=== PATIENT | male | born 1995 | race Caucasian/White ===

== ENCOUNTER 2019-03-24 09:39 | Outpatient (CLI) | payer OTHER, SELFPAY ==
--- NOTE | ~2019-03-24 | XR_ITS ---
EXAMINATION: XR foot RT min 3V DATE: 03/24/2019 09:52 INDICATION: Fifth metatarsal fracture TECHNIQUE: Dorsoplantar, lateral, and 2 oblique views of the left foot were obtained. COMPARISON: 03/03/2019 FINDINGS: Again seen is a transverse fracture at the distal neck of the fifth metatarsal. Calcified c allus has slightly increased. Bone alignment is normal. The soft tissues are unremarkable. No additio nal osseous abnormality is identified. IMPRESSION: 1. Fifth metatarsal fracture with routine healing. Reviewed, dictated and finalized at location A. 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
== END 2019-03-24 09:40 | disposition home or self-care (01) ==
LOC: ANHIMG 09:41
PROVIDERS: Visit Provider Podiatrist Foot & Ankle Surgery
DX: S92.351D Displaced fracture of fifth metatarsal bone, right foot, subsequent encounter for fracture with routine healing (principal); X58.XXXD Exposure to other specified factors, subsequent encounter
CPT/HCPCS: 73630

== ENCOUNTER 2019-04-13 08:17 | Outpatient (CLI) | payer MEDICAID, SELFPAY ==
--- NOTE | ~2019-04-13 | XR_ITS ---
XR foot RT min 3V DATE: 04/13/2019 08:37 INDICATION: Fifth metatarsal fracture TECHNIQUE: 4 views COMPARISON: None FINDINGS: There is sclerosis and linear periosteal reaction at the virtually nondisplaced fracture of the neck of the fifth metatarsal bone consistent with healing fracture. No other fracture or dislocation is evident. IMPRESSION: Healing virtually nondisplaced fifth metatarsal neck fracture Reviewed, dictated and finalized at location B. 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
== END 2019-04-13 08:18 | disposition home or self-care (01) ==
LOC: ANHIMG 08:19
PROVIDERS: Visit Provider Podiatrist Foot & Ankle Surgery
DX: S92.355A Nondisplaced fracture of fifth metatarsal bone, left foot, initial encounter for closed fracture (principal); X58.XXXA Exposure to other specified factors, initial encounter
CPT/HCPCS: 73630

== ENCOUNTER 2019-07-23 08:19 | Emergency (ER) | payer OTHER, SELFPAY ==
[2019-07-23 08:51] VITALS: BP 134/86; PULSE 68; RESP 16; TEMP 36.8; O2SAT 100
--- NOTE | 2019-07-23 08:52 | ED.URI ---
HPI - URI/Sore Throat General Chief Complaint: Upper Respiratory Infection Stated Complaint: blister on back/throat Time Seen by Provider: 07/23/19 08:52 Source: patient Mode of arrival: ambulatory History of Present Illness HPI Narrative: Scar Metz is a 23 yo male who comes to express care for complaints of a sore throat and sunburn on his back from being out in the sun yesterday. It sore throat started today and is able to swallow but hurts to do so. No fever Related Data Allergies Allergy/AdvReac Type Severity Reaction Status Date / Time No Known Allergies Allergy Verified 07/23/19 08:42 Review of Systems Review of Systems: Narrative: CONSTITUTIONAL: Denies fever, chills, sweats. EYES: Denies visual changes, redness, discharge. ENT: Denies rhinorrhea, congestion, has sore throat, no otalgia. CARDIOVASCULAR: Denies chest pain, palpitations, edema. RESPIRATORY: Denies dyspnea, wheezing, cough GASTROINTESTINAL: Denies abdominal pain, nausea, vomiting, diarrhea. GENITOURINARY: Denies dysuria, hematuria, abnormal discharge SKIN: Denies rash or itching. Mild sunburn of full back NEUROLOGIC: Denies numbness, or focal weakness. PSYCHIATRIC: Denies anxiety or depression. PMFSH Past Medical History Medical History Asthma IBS (irritable bowel syndrome) Murmur Surgical History Surgical History No significant past surgical history Social History Social History (Updated 07/23/19 @ 09:08 by Santa Peterson CNP) Smoking status: Never smoker Alcohol intake: current Gender identity (if verbalized by the patient): Male Comments At time of signature, I agree with nursing past medical, surgical, social and family history. There is no relevant family history pertinent to the presenting complaint. Exam Narrative: Exam Narrative: GENERAL: This is a well-nourished, well-developed patient, in mild distress. HEAD: normocephalic, atraumatic. EYES: Sclera clear/white. Vision is grossly intact. EARS: External ears normal, auditory canals clear and without drainage, TMs normal without perforation. Hearing grossly intact. NOSE: External nose normal without nasal discharge, nares without redness, no rhinorrhea. THROAT: Mucous membranes moist, posterior pharynx erythema with right-sided swelling and ulcerated area to the right tonsil NECK: Neck supple, non-tender CARDIOVASCULAR: Regular rate and rhythm mild murmurs, gallops, or rubs. RESPIRATORY: Clear to auscultation. Breath sounds equal bilaterally. No wheezes, rales, or rhonchi. GASTROINTESTINAL: Abdomen soft, non-tender, SKIN: warm, intact with no suspicious lesions or rash, good texture and turgor. MIld sunburn of back NEURO: awake, alert, and oriented to person, place and time. There were no obvious focal neurologic abnormalities. Steady gait EXTREMITIES: Normal range of motion. BACK: Nontender without deformity Course Course Emergency Course: strep positive- started on penicillin lidocaine lotion for back Vital Signs Vital signs: Vital Signs Temperature 98.3 F 07/23/19 08:51 Pulse Rate 68 07/23/19 08:51 Respiratory Rate 16 07/23/19 08:51 Blood Pressure 134/86 07/23/19 08:51 Pulse Oximetry 100 07/23/19 08:51 Temperature 98.3 F 07/23/19 08:51 Pulse Rate 68 07/23/19 08:51 Respiratory Rate 16 07/23/19 08:51 Blood Pressure 134/86 07/23/19 08:51 Pulse Oximetry 100 07/23/19 08:51 MDM - URI/Sore Throat Differential Diagnosis Differential diagnosis: Likely upper respiratory infection, pharyngitis and other (sunburn) Lab Data Labs: Strep Screen Positive Group A Strep *(Reference Range: Negative)* Discharge Plan Discharge Clinical Impression: 1st degree sunburn Pharyngitis Qualifiers: Pharyngitis/tonsillitis etiology: streptococcus Qualified Code(s): J02.0 - Streptococcal pha
== END 2019-07-23 09:12 | disposition home or self-care (01) ==
PROVIDERS: Emergency Provider Nurse Practitioner
DX: J02.0 Streptococcal pharyngitis (principal); L55.0 Sunburn of first degree; J45.909 Unspecified asthma, uncomplicated; K58.9 Irritable bowel syndrome, unspecified
CPT/HCPCS: 87880; 99213; G0463

== ENCOUNTER 2019-10-31 09:02 | Emergency (ER) | payer OTHER, SELFPAY ==
--- NOTE | 2019-10-31 09:12 | ED.URI ---
HPI - URI/Sore Throat General Chief Complaint: Upper Respiratory Infection Stated Complaint: Skin/Sore throat/cough Time Seen by Provider: 10/31/19 09:12 Source: patient and RN notes reviewed History of Present Illness HPI Narrative: Patient is a 24-year-old male who presents the urgent care with complaints of sore throat, slight cough and itchy diffuse rash. 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 Patient states that he has been using lidocaine spray but denies any use of hydrocortisone or an antihistamine. Patient states that he has had a sore throat for approximately 4 days and is now developed into a nonproductive cough. Patient denies of any known fever, nausea, vomiting, shortness of breath or headache. Patient has been using DayQuil and NyQuil for the sore throat and took 1 dose of ibuprofen. Denies of any known exposure to strep or COVID. No other acute complaints. No acute distress noted. Patient read the plan of care. Related Data Allergies Allergy/AdvReac Type Severity Reaction Status Date / Time No Known Allergies Allergy Verified 10/31/19 09:07 Review of Systems Review of Systems: Narrative: CONSTITUTIONAL: Denies fever, chills, or sweats. EYES: Denies visual changes, redness, or discharge. ENT: Reports of sore throat CARDIOVASCULAR: Denies chest pain, palpitations, or edema. RESPIRATORY: Reports of mild nonproductive cough without dyspnea GASTROINTESTINAL: Denies abdominal pain, nausea, vomiting, or diarrhea. GENITOURINARY: Denies dysuria or hematuria. SKIN: Reports of pruritic red rash MUSCULOSKELETAL: Denies back pain, joint pain, or myalgia. NEUROLOGIC: Denies headache, numbness, or weakness. All other systems reviewed are negative, except as documented in HPI. PMFSH Social History Social History (Updated 07/23/19 @ 09:08 by Santa Peterson CNP) Smoking status: Never smoker Alcohol intake: current Gender identity (if verbalized by the patient): Male Comments At the time of my signature, I reviewed and agree with the nursing past medical, surgical, social, and family history. There is no relevant family history pertinent to the patient complaint. Exam Narrative: Exam Narrative: GENERAL: This is a well-nourished, well-developed patient, in no apparent distress. HEAD: normocephalic, atraumatic. EYES: PERRL. Sclera clear/white. Vision is grossly intact. EARS: External ears normal, auditory canals clear and without drainage, TMs normal without perforation. Hearing grossly intact. NOSE: External nose normal with no obvious nasal discharge, nares without redness, no rhinorrhea. THROAT: Mucous membranes moist, posterior pharynx clear. Mild postnasal drainage NECK: Neck supple, non-tender without lymphadenopathy CARDIOVASCULAR: Regular rate and rhythm without murmurs, gallops, or rubs. RESPIRATORY: Clear to auscultation. Breath sounds equal bilaterally. No wheezes, rales, or rhonchi. SKIN: Pustular clusters and linear tracts of pruritic erythemic dermatitis known to bilateral upper and lower extremities NEURO: awake, alert, and oriented to person, place and time. There were no obvious focal neurologic abnormalities. EXTREMITIES: No clubbing, cyanosis, or edema. Course Vital Signs Vital signs: Vital Signs Temperature 97.3 F L 10/31/19 09:14 Pulse Rate 67 10/31/19 09:14 Respiratory Rate 16 10/31/19 09:14 Blood Pressure 145/91 H 10/31/19 09:14 Pulse Oximetry 100 10/31/19 09:14 Temperature 97.3 F L 10/31/19 09:14 Pulse Rate 67 10/31/19 09:14 Respiratory Rate 16 10/31/19 09:14 Blood Pressure 145/91 H 10/31/19 09:14 Pulse Oximetry 100 10/31/19 09:14 Reviewed-patient is informed that they may have pre-hypertension or hypertension based on a blood pressure reading in the department. I recommend the patient call the primary care provider listed on their discharge instru
[2019-10-31 09:14] VITALS: BP 145/91; PULSE 67; RESP 16; TEMP 36.3; O2SAT 100
== END 2019-10-31 09:30 | disposition home or self-care (01) ==
PROVIDERS: Emergency Provider Nurse Practitioner Family; PCP Internal Medicine
DX: J02.0 Streptococcal pharyngitis (principal)
CPT/HCPCS: 87880; 99213; G0463

== ENCOUNTER 2020-01-16 08:33 | Emergency (ER) | payer OTHER, SELFPAY ==
--- NOTE | 2020-01-16 09:05 | ED.EXTPRO ---
HPI - Extremity Problem General Chief complaint: Extremity Problem,Nontraumatic Stated complaint: right foot pain Time Seen by Provider: 01/16/20 09:00 Source: patient and RN notes reviewed Mode of arrival: ambulatory Limitations: no limitations History of Present Illness HPI Narrative: 24-year-old male presents concern for pain to the plantar aspect of his right foot. He denies any injury, trauma. Reports he can feel a bump under the skin where the pain is located. He denies any open skin, redness, bruising. He denies any intervention MD Complaint: extremity pain Related Data Home Medications Medication Instructions Recorded Confirmed No Home Medications 01/16/20 01/16/20 Allergies Allergy/AdvReac Type Severity Reaction Status Date / Time No Known Allergies Allergy Verified 01/16/20 08:41 Review of Systems Review of Systems: Narrative: CONSTITUTIONAL: Denies malaise, chills, sweats, or fever. CARDIOVASCULAR: Denies chest pain, palpitations, or edema. RESPIRATORY: Denies cough or dyspnea. SKIN: Denies open skin. Reports a painful bump on the bottom of his right foot MUSCULOSKELETAL: Reports right foot pain, denies decreased sensation or range of motion NEUROLOGIC: Denies numbness, weakness All systems reviewed & are unremarkable except as noted in HPI and below PMFSH Past Medical History Medical History (Updated 01/16/20 @ 09:10 by Nica Lloyd NP) Asthma IBS (irritable bowel syndrome) Murmur Surgical History Surgical History No significant past surgical history Social History Social History (Updated 07/23/19 @ 09:08 by Santa Peterson CNP) Smoking status: Never smoker Alcohol intake: current Gender identity (if verbalized by the patient): Male Comments At time of signature, agree with nursing past medical, surgical, social and family history. There is no relevant family history pertinent to the presenting complaint Exam Narrative: Exam Narrative: GENERAL: Well-appearing, well-nourished, and in no acute distress. HEAD: Normocephalic, atraumatic. EYES: PERRLA, conjunctivae clear NECK: Supple. CHEST: Speaks in full sentences. No respiratory distress. HEART: Regular rate and rhythm. Normal and equal peripheral pulses. EXTREMITIES: Right foot, digits of right foot have normal strength and sensation, normal range of motion. No edema or ecchymosis. 5/5 strength with ankle and digit flexion and extension. Normal sensation with sensitivity to light touch and pain. No point tenderness. No open wounds, no skin tenting, no devitalized tissue or atrophy, no trophic changes, no obvious deformity, alignment normal, nearby joints and structures intact. Distal pulses palpable and equal bilaterally, skin warm, dry, pink. Capillary refill less than 3 seconds. SKIN: Warm, dry, no rash. Palpable plantar wart approximately 0.5 cm in diameter noted to the plantar aspect of the right foot beneath digits 3 and 4 NEURO: Alert and oriented x3. PSYCH: Normal mood and affect Course Course Emergency Course: Patient is aware of diagnosis, understands and agrees to treatment plan. Anticipatory guidance given. Patient agrees to follow-up as directed and is aware of reasons to seek care at the emergency department. Portions of this record may have been created with voice recognition software Vital Signs Vital signs: Reviewed. MDM - Extremity (Nontraumatic) MDM Narrative Medical decision making narrative: Exam findings show no acute concerns or changes; patient is non-toxic appearing and is in no distress. Patient is appropriate for outpatient treatment and follow-up. Critical Care Time Critical Care Time Critical Care Time: No Discharge Plan Discharge Clinical Impression: Plantar wart of right foot Patient Disposition: Home, Self-Care Condition: Stable Instructions: Plantar Wart (ED) Additional Instructions: 1) Please follow-up with you
== END 2020-01-16 09:12 | disposition home or self-care (01) ==
PROVIDERS: Emergency Provider Nurse Practitioner
DX: B07.0 Plantar wart (principal); J45.909 Unspecified asthma, uncomplicated; R01.1 Cardiac murmur, unspecified
CPT/HCPCS: 99211; G0463

== ENCOUNTER 2020-12-14 12:22 | Emergency (ER) | payer OTHER, SELFPAY ==
[2020-12-14 12:39] VITALS: BP 146/93; PULSE 73; RESP 16; TEMP 36.7; O2SAT 99
--- NOTE | 2020-12-16 08:24 | ED.GENADULT ---
HPI - General Adult General Chief complaint: Upper Respiratory Infection Stated complaint: cough/sore throat Source: patient Mode of arrival: ambulatory Limitations: no limitations History of Present Illness HPI narrative: Patient is a 25-year-old male who presents to the urgent care via POV for evaluation of URI symptoms that began yesterday. Additionally, he reports nasal congestion, sore throat, and cough. He reports his cough is productive. He states he has a small amount of green sputum with intermittent cough. No relief with DayQuil. Cough drops alleviate sore throat. Nothing worsens symptoms. Denies known exposure to sick contacts. Patient is vaccinated against Covid. Related Data Allergies Allergy/AdvReac Type Severity Reaction Status Date / Time No Known Allergies Allergy Verified 12/14/20 12:41 Review of Systems Review of Systems: Denies history of COPD, bronchitis, and pneumonia. Pertinent negatives: fever, sweats, chills, change in appetite, fatigue, skin color changes, headache, nasal discharge, dizziness, lymphadenopathy, drooling, difficulty swallowing, ear pain/drainage, chest pain, heart murmurs, heart palpitations, shortness of breath, wheezing, cyanosis, hemoptysis, hoarseness, orthopnea, pleuritic pain, nausea, vomiting, diarrhea, and myalgias. PMFSH Past Medical History Medical History Asthma IBS (irritable bowel syndrome) Murmur Surgical History Surgical History No significant past surgical history Social History Social History Smoking status: Never smoker Alcohol intake: current Gender identity (if verbalized by the patient): Male Comments I have reviewed and agree with the patient's past medical, surgical, social, and family hx as documented by the RN. There is no relevant family history pertinent to the presenting complaint. Exam Narrative: GENERAL: Well-appearing, well-nourished, and in no acute distress. HEAD: Normocephalic, atraumatic. No sinus tenderness or facial swelling appreciated. EYES: PERRLA and EOMI. No evidence of erythema, swelling, or drainage. ENT: Bilateral external ears and ear canals normal. Bilateral TMs are normal.No TM perforation. Nares clear or epistaxis. Small amount of clear nasal drainage noted to bilateral naris. Bilateral turbinates without erythema/ swelling. Mucous membranes moist and pink. Uvula is midline without erythema and swelling. No evidence of petechial rash, cobblestoning, lesions, ulcers, erythema, swelling, exudates, peritonsillar abscess, tenting, or drooling. Breath odor and voice normal. NECK: Supple. No Lymphadenopathy or nuchal rigidity appreciated. CHEST: Bilateral lung posadas are clear to auscultation. No respiratory distress. No evidence of pleuritic cp upon examination. Mild wet cough appreciated upon examination. HEART: Regular rate and rhythm. No murmur, gallop, or rub heard. EXTREMITIES: Normal range of motion. No edema. SKIN: Warm, dry, no rash. NEURO: No focal deficits. Alert and oriented x3. Course Vital Signs Vital signs: Vital Signs Temperature 98.1 F 12/14/20 12:39 Pulse Rate 73 12/14/20 12:39 Respiratory Rate 16 12/14/20 12:39 Blood Pressure 146/93 H 12/14/20 12:39 Pulse Oximetry 99 12/14/20 12:39 Temperature 98.1 F 12/14/20 12:39 Pulse Rate 73 12/14/20 12:39 Respiratory Rate 16 12/14/20 12:39 Blood Pressure 146/93 H 12/14/20 12:39 Pulse Oximetry 99 12/14/20 12:39 Due to an elevated blood pressure, I had a detailed discussion with the patient and/or guardian regarding the need for follow-up with their primary care provider within the next 3-4 days. Patient verbalized understanding and agreed. Medical Decision Making Differential Diagnosis Differential Diagnosis: Allergic rhinitis, ABRS,
== END 2020-12-14 13:57 | disposition home or self-care (01) ==
PROVIDERS: Emergency Provider Nurse Practitioner Family
DX: J06.9 Acute upper respiratory infection, unspecified (principal); M19.90 Unspecified osteoarthritis, unspecified site; R01.1 Cardiac murmur, unspecified
CPT/HCPCS: 87081; 87880; 99213; G0463

== ENCOUNTER 2021-03-09 18:18 | Emergency (ER) | payer OTHER, SELFPAY ==
[2021-03-09 18:28] VITALS: BP 165/74; PULSE 87; RESP 16; TEMP 36.6; O2SAT 100
--- NOTE | 2021-03-09 18:43 | ED.DENTAL ---
HPI - Dental/Oral General Chief complaint: Dental/Oral Stated complaint: Tooth Ache Time Seen by Provider: 03/09/21 18:38 Source: patient and RN notes reviewed Mode of arrival: ambulatory Limitations: no limitations History of Present Illness HPI Narrative: Patient presents today complaining of a 10-day history of right upper dental pain. States the tooth has been bothering him intermittently for the past 2 months with the pain has been constant over the past 10 days. Reports the tooth broke several months ago. Currently rates his pain 5/10, which increases with eating or cold air. He has been taking ibuprofen with mild short-term relief. He does not currently have a dentist. MD Complaint: tooth pain Related Data Allergies Allergy/AdvReac Type Severity Reaction Status Date / Time No Known Allergies Allergy Verified 12/14/20 12:41 Review of Systems Review of Systems: CONSTITUTIONAL: Denies body aches, fever, chills, or sweats. EYES: Denies visual changes, redness, or discharge. ENT: Denies rhinorrhea, congestion, sore throat, or otalgia.+ Tooth pain CARDIOVASCULAR: Denies chest pain, palpitations, or edema. RESPIRATORY: Denies cough or dyspnea. GASTROINTESTINAL: Denies abdominal pain, nausea, vomiting, or diarrhea. GENITOURINARY: Denies dysuria or hematuria. SKIN: Denies rash, itching, or wounds. MUSCULOSKELETAL: Denies back pain, joint pain, or myalgia. NEUROLOGIC: Denies headache, numbness, tingling, or weakness. PSYCH: Denies depression or anxiety. [facility] Past Medical History Medical History (Updated 03/09/21 @ 18:45 by Mary Randle, CHON, ) Asthma IBS (irritable bowel syndrome) Murmur Surgical History Surgical History No significant past surgical history Social History Social History Smoking status: Never smoker Alcohol intake: current Gender identity (if verbalized by the patient): Male Comments At time of signature, I have reviewed and agree with nursing past medical, surgical, social and family history unless otherwise noted. Please see nursing chart for further information. There is no relevant family history pertinent to the presenting complaint Exam Narrative: GENERAL: Well-appearing, well-nourished, and in no acute distress. HEAD: Normocephalic, atraumatic. EYES: EOMI. No redness or drainage. Conjunctivae normal. ENT: Mucous membranes pink and moist. Throat normal. Uvula midline. Anterior half of tooth #3 is missing. Mild swelling of the gumline with no obvious periapical abscess. Mild swelling of the upper cheek. NECK: Normal AROM. Supple. No lymphadenopathy. CHEST: No respiratory distress. EXTREMITIES: Normal range of motion. No edema. SKIN: Warm, dry, no rash. Capillary refill normal. Normal skin turgor. NEURO: No focal deficits. Alert and oriented x3. Gait steady. PSYCH: Normal affect. No signs of depression or anxiety. Course Course Level of Care: Express Care Visit Vital Signs Vital signs: Vital Signs Temperature 97.9 F 03/09/21 18:28 Pulse Rate 87 03/09/21 18:28 Respiratory Rate 16 03/09/21 18:28 Blood Pressure 165/74 H 03/09/21 18:28 Pulse Oximetry 100 03/09/21 18:28 Temperature 97.9 F 03/09/21 18:28 Pulse Rate 87 03/09/21 18:28 Respiratory Rate 16 03/09/21 18:28 Blood Pressure 165/74 H 03/09/21 18:28 Pulse Oximetry 100 03/09/21 18:28 Reviewed. Pt has been instructed to follow up with his PCP regarding his elevated blood pressure today. MDM - Dental/Oral Differential Diagnosis Differential diagnosis: Likely gingival abscess, dental caries, toothache, dental abscess and fracture of tooth Critical Care Time Critical Care Time Critical Care Time: No Discharge Plan Discharge Clinical Impression: Abscess, dental Patient Disposition: Home, Self-Care Condition: Stable Instructions: Antibio
== END 2021-03-09 18:52 | disposition home or self-care (01) ==
PROVIDERS: Emergency Provider Nurse Practitioner
DX: K04.7 Periapical abscess without sinus (principal); J45.909 Unspecified asthma, uncomplicated; R01.1 Cardiac murmur, unspecified
CPT/HCPCS: 99213; G0463

== ENCOUNTER 2021-11-22 20:57 | Emergency (ER) | payer OTHER, SELFPAY ==
--- NOTE | ~2021-11-22 | US_ITS ---
EXAMINATION: US scrotum doppler DATE: 11/22/2021 22:03 INDICATION: Right testicular pain. TECHNIQUE: Testicular sonogram utilizing grayscale and Doppler COMPARISON: None. FINDINGS: The right testis measures 5.1 x 2.6 x 2.8 cm. The left testis measures 4.9 x 2.9 x 2.5 cm. Symmetric normal grayscale appearance to both testes. There is normal vascular flow to both testes. The right e pididymis is normal with normal vascular flow. The left epididymis is normal with normal vascular jennifer w. There is no varicocele or hydrocele. IMPRESSION: 1. Normal scrotal ultrasound. Reviewed, dictated and finalized at location A.
[2021-11-22 20:58] VITALS: BP 149/83; PULSE 84; RESP 20; TEMP 36.6; O2SAT 100
[2021-11-22 21:23] LABS: Appearance Urine Clear (Clear); Bilirubin Urine Negative (Negative); Blood Urine Trace-intact (Negative); Color Urine Yellow (Yellow); Glucose Urine UA Negative (Negative); Ketones Urine Negative (Negative); Leukocyte Esterase Ur Negative LEU/UL (Negative); Nitrate Urine Negative (Negative); Protein Urine Negative (Negative); Specific Grav Ur >= 1.030 (1.001-1.035)
[2021-11-22 21:28] LABS: Mucus Urine Rare /lpf; Squamous Epithelial Cell Urine Rare /hpf (Few); WBC Urine 0-3 /hpf
[2021-11-22 21:29] LABS: Add Urine Microscopic? YES
--- NOTE | 2021-11-22 22:51 | ED.GENADULT ---
HPI - General Adult General Chief complaint: Urogenital-Male Stated complaint: TESTICULAR PAIN Time Seen by Provider: 11/22/21 21:04 History of Present Illness HPI narrative: 26-year-old male presented the emergency department for evaluation of right testicular pain. Patient states the pain has been intermittent over the last few days. Patient states the pain is worsened with movement. Patient denies any hematuria. Patient denies any injury. Patient denies any pain with urination. Patient has no prior history of kidney stones or testicular surgery. Denies any concern for STIs. Related Data Allergies Allergy/AdvReac Type Severity Reaction Status Date / Time No Known Allergies Allergy Verified 11/22/21 21:01 Review of Systems Review of Systems: CONSTITUTIONAL: Denies fever, chills, or sweats. EYES: Denies visual changes, redness, or discharge. ENT: Denies rhinorrhea, congestion, sore throat, or otalgia. CARDIOVASCULAR: Denies chest pain, palpitations, or edema. RESPIRATORY: Denies cough or dyspnea. GASTROINTESTINAL: Denies abdominal pain, nausea, vomiting, or diarrhea. GENITOURINARY: Intermittent left testicular pain, see HPI SKIN: Denies rash or itching. MUSCULOSKELETAL: Denies back pain, joint pain, or myalgia. NEUROLOGIC: Denies headache, numbness, or weakness. [facility] Past Medical History Medical History (Updated 11/23/21 @ 00:00 by Background Danegrito) Asthma IBS (irritable bowel syndrome) Murmur Surgical History Surgical History No significant past surgical history Social History Social History Smoking status: Never smoker Alcohol intake: current Gender identity (if verbalized by the patient): Male Exam Narrative: APPEARANCE: Well appearing, no pain, no distress, well-nourished. HEAD: normocephalic, atraumatic. EYES: PERRLA/EOMI, conjunctivae clear. NOSE: Normal no drainage NECK: Supple. No adenopathy, no masses. RESPIRATORY: Airway patent, respirations nonlabored. Clear to auscultation bilaterally, no rales, rhonchi, wheezing. CARDIOVASCULAR: Regular rate and rhythm without murmurs rubs or gallops. ABDOMINAL: Soft, nontender, nondistended, normal bowel sounds, no CVA tenderness to left or right Genitourinary: Normal left testicle, tenderness to right testicle. No high riding right testicle. No scrotal edema or erythema. No swelling to either testicle. Patient does have reproducible tenderness to right testicle. MUSCULOSKELETAL: Moves all extremities. Strength/ROM intact, No edema, No calf tenderness. NEURO: Alert. Cranial nerves II through XII intact. Grossly intact SKIN: Warm, dry. Normal Color Course Course Emergency Course: Patient was updated on the results of his ultrasound. All question concerns were addressed. Patient was encouraged to have close follow-up with urology. Vital Signs Vital signs: Vital Signs Temperature 97.9 F 11/22/21 20:58 Pulse Rate 84 11/22/21 20:58 Respiratory Rate 20 11/22/21 20:58 Blood Pressure 149/83 H 11/22/21 20:58 Pulse Oximetry 100 11/22/21 20:58 Oxygen Delivery Room Air 11/22/21 20:58 Temperature 98.3 F 11/22/21 23:09 Pulse Rate 82 11/22/21 23:09 Respiratory Rate 16 11/22/21 23:09 Blood Pressure 126/80 11/22/21 23:09 Pulse Oximetry 98 11/22/21 23:09 Oxygen Delivery Room Air 11/22/21 20:58 Medical Decision Making Vital Signs Vital Signs: Vital Signs Temperature 97.9 F 11/22/21 20:58 Pulse Rate 84 11/22/21 20:58 Respiratory Rate 20 11/22/21 20:58 Blood Pressure 149/83 H 11/22/21 20:58 Pulse Oximetry 100 11/22/21 20:58 Oxygen Delivery Room Air 11/22/21 20:58 Temperature 98.3 F 11/22/21 23:09 Pulse Rate 82 11/22/21 23:09 Respiratory Rate 16 11/22/21 23:09 Blood Pressure 126/80 11/22/21 23:09 Pulse Oximetry 98 11/22/21 23:09 Oxygen Deliver
[2021-11-22 23:09] VITALS: BP 126/80; PULSE 82; RESP 16; TEMP 36.8; O2SAT 98
== END 2021-11-22 23:10 | disposition home or self-care (01) ==
PROVIDERS: Emergency Provider Emergency Medicine
DX: N50.811 Right testicular pain (principal); J45.909 Unspecified asthma, uncomplicated; R01.1 Cardiac murmur, unspecified
CPT/HCPCS: 76870; 81001; 93976; 99284

== ENCOUNTER 2022-02-08 10:12 | Emergency (ER) | payer OTHER, SELFPAY ==
--- NOTE | ~2022-02-08 | XR_ITS ---
EXAMINATION: XR hand RT min 3V INDICATION: Right hand pain TECHNIQUE: Three views of the right hand are obtained. COMPARISON: None available FINDINGS: No fracture, dislocation, or subluxation. The bones, soft tissues, and joint spaces are nor mal. IMPRESSION: 1. No acute osseous abnormality. Reviewed, dictated and finalized at location A. AGING COORDINATOR
[2022-02-08 10:18] VITALS: BP 160/81; PULSE 68; RESP 14; TEMP 36.6; O2SAT 100
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
== END 2022-02-08 11:50 | disposition home or self-care (01) ==
LOC: ANHED 11:33
PROVIDERS: Emergency Provider Nurse Practitioner Family
DX: S60.011A Contusion of right thumb without damage to nail, initial encounter (principal); J45.909 Unspecified asthma, uncomplicated; K58.9 Irritable bowel syndrome, unspecified; W51.XXXA Accidental striking against or bumped into by another person, initial encounter
CPT/HCPCS: 73130; 99283

== ENCOUNTER 2022-02-12 07:54 | Emergency (ER) | payer OTHER, SELFPAY ==
[2022-02-12 08:03] VITALS: BP 142/78; PULSE 71; RESP 16; TEMP 36.7; O2SAT 99
[2022-02-12 08:41] VITALS: PULSE 65; O2SAT 99
--- NOTE | 2022-02-12 09:07 | PC.NURSE ---
BRAKE RELINER seeing pt. in triage bay.
--- NOTE | 2022-02-12 09:13 | ED.EXTPRO ---
HPI - Extremity Problem General Chief complaint: Extremity Problem,Nontraumatic Stated complaint: swollen, tender, and itchy left hand Time Seen by Provider: 02/12/22 09:04 History of Present Illness HPI Narrative: Patient is a 26-year-old male here for evaluation of redness and swelling to the base of his right thumb over the past day. Patient denies any injury. States that he noticed the area was itchy and after he scratched it became red and swollen. He is taking Benadryl with slight relief. States that yesterday he had redness up his arm but this has resolved today. He denies any fevers, chills, nausea, vomiting, difficulty moving the arm or hand. No new medications, soaps, detergents. Related Data Allergies Allergy/AdvReac Type Severity Reaction Status Date / Time No Known Allergies Allergy Verified 11/22/21 21:01 Review of Systems Review of Systems: Gen.: Denies fevers or chills Eyes: Denies eye pain or visual change ENT: Denies congestion Respiratory: Denies shortness of breath or cough CV: Denies chest pain or palpitations GI: Denies abdominal pain nausea, emesis or diarrhea : denies burning, urgency, frequency or hematuria Musculoskeletal: Reports right hand and arm pain. Neuro: Denies numbness, tingling, weakness or focal weakness Skin: Denies rash Except as documented, all other systems reviewed and negative [facility] Past Medical History Medical History Asthma IBS (irritable bowel syndrome) Murmur Surgical History Surgical History No significant past surgical history Social History Social History Smoking status: Never smoker Alcohol intake: current Gender identity (if verbalized by the patient): Male Exam Narrative: Gen: Alert, oriented, no acute disease Eyes: EOMI, no icterus Pulm: Respirations even and unlabored, symmetric thorax expansion, no audible stridor or visible cyanosis CV: Strong radial pulses. GI: No distension, no voluntary/involuntary guarding Neuro: AOx4, moves all extremities without apparent difficulty or weakness, follows commands MSK: Full range of motion in right hand. Sensation intact to entirety of extremity. No erythema appreciated. Mild swelling near the base of the thumb that is nontender to palpation. No deformity. Skin: No jaundice, no visible bruising, rashes, lesions or wounds on exposed skin Psych: Normal mood/affect, insight/judgement good, adequate fund of knowledge, recent/remote memory intact Course Vital Signs Vital signs: Vital Signs Temperature 98.1 F 02/12/22 08:03 Pulse Rate 71 02/12/22 08:03 Respiratory Rate 16 02/12/22 08:03 Blood Pressure 142/78 H 02/12/22 08:03 Pulse Oximetry 99 02/12/22 08:03 Temperature 98.1 F 02/12/22 08:03 Pulse Rate 65 02/12/22 08:41 Respiratory Rate 16 02/12/22 08:03 Blood Pressure 142/78 H 02/12/22 08:03 Pulse Oximetry 99 02/12/22 08:41 MDM - Extremity (Nontraumatic) MDM Narrative Medical decision making narrative: 26-year-old male here for evaluation of itching and redness to the base of his thumb that began the night before. No obvious precipitants. Differential include allergic reaction versus cellulitis. He has full range of motion in the hand and no obvious swelling to suggest tenosynovitis. Patient will be treated with prednisone and Keflex in case there is an infectious component, especially given location over hand. He was given return precautions and he voiced understanding. Discharge Plan Discharge Clinical Impression: Cellulitis of arm Patient Disposition: Home, Self-Care Condition: Stable Instructions: Antibiotic Form, Cellulitis (ED) Additional Instructions: Your swelling and redness may be due to an infection called cellulitis. This may also be an allergic reaction to s
== END 2022-02-12 09:18 | disposition home or self-care (01) ==
PROVIDERS: Emergency Provider Physician Assistant
DX: L03.113 Cellulitis of right upper limb (principal); J45.909 Unspecified asthma, uncomplicated; K58.9 Irritable bowel syndrome, unspecified
CPT/HCPCS: 99283

== ENCOUNTER 2022-08-27 22:42 | Emergency (ER) | payer OTHER, SELFPAY ==
[2022-08-27 22:52] VITALS: BP 160/80; PULSE 70; RESP 14; TEMP 36.6; O2SAT 100
[2022-08-27 23:04] LABS: Basophils Absolute Auto 0.1 K/mm3 (0.0-0.1); Basophils Percent Auto 0.5 % (0.2-1.2); Eosinophils Absolute Auto 0.1 K/mm3 (0-0.3); Eosinophils Percent Auto 1.2 % (0-4.4); Hematocrit 44.5 % (42.0-52.0); Hemoglobin 15.1 g/dL (14.0-18.0); Immature Granulocyte Absolute 0.03 K/mm3 (0.00-0.031); Immature Granulocyte Percent A 0.3 % (0-0.5); Lymphocytes Absolute Auto 3.43 K/mm3 (0.9-3.2); Lymphocytes Percent Auto 32.9 % (18.3-44.2); Mean Corpuscular HGB Conc 33.9 g/dl (32-36); Mean Corpuscular Hemoglobin 29.8 pg (26-34); Mean Corpuscular Volume 87.8 fl (80-100); Mean Platelet Volume 8.3 fl (7.4-10.4); Monocytes Absolute Auto 0.5 K/mm3 (0.1-0.6); Monocytes Percent Auto 4.8 % (2.6-8.5); Neutrophils Absolute Auto 6.3 K/mm3 (1.3-6.7); Neutrophils Percent Auto 60.3 % (45.5-73.1); Platelet Count Result 294 k/mm3 (150-375); Red Blood Count 5.07 M/mm3 (4.6-6.20); Red Cell Distribution Width 11.8 % (11.5-14.5); White Blood Count 10.4 K/mm3 (4.5-10.0)
[2022-08-27 23:22] LABS: Alanine Aminotransferase 20 U/L (6-50); Albumin Level 4.6 g/dL (3.5-5.1); Alkaline Phosphatase 55 U/L (38-126); Anion Gap 6 mmol/L (8-16); Aspartate Amino Transferase 28 U/L (17-59); Bilirubin,Total 0.6 mg/dL (0.2-1.3); Blood Urea Nitrogen 11 mg/dL (9-20); Calcium 9.2 mg/dL (8.4-10.2); Carbon Dioxide 32 mmol/L (22-30); Chloride 102 mmol/L (98-107); Estimated CRCL calculation 141 ml/min; Estimated Glomerular Filt Rate > 60; Glucose 105 mg/dL (65-110); Potassium 4.1 mmol/L (3.4-5.0); Prothrombin Time 13.9 Seconds (11.1-14.7); Sodium 140 mmol/L (137-145)
[2022-08-27 23:23] LABS: Partial Thromboplastin Time 33.5 SECONDS (22.3-36.8)
[2022-08-28] VITALS (8 sets, daily range): BP systolic 125–142; BP diastolic 72–114; PULSE 51–61; RESP 14–21; TEMP 36.4–36.8; O2SAT 98–100
--- NOTE | 2022-08-28 02:13 | ED.GENADULT ---
HPI - General Adult General Chief complaint: GI Bleed Stated complaint: black tarry stool Time Seen by Provider: 08/28/22 00:36 History of Present Illness HPI narrative: 26-year-old male presenting with concerns for a black tarry stools. Patient states that approximately 3 hours prior to arrival he had a black bowel movement in the toilet. He was concerned for GI bleed came to the hospital to be evaluated. The patient denies weakness, chest pain, difficulty breathing, use of blood thinners, heavy alcohol or NSAID use or any history of GI bleeding. Patient states that he feels good. Patient also noted that he had swelling of his left eye. It is red and itchy. No pain. No vision changes. Patient works in [place]. Related Data Allergies Allergy/AdvReac Type Severity Reaction Status Date / Time No Known Allergies Allergy Verified 11/22/21 21:01 [facility] Past Medical History Medical History (Updated 08/28/22 @ 02:24 by Sea Keller MD) Asthma IBS (irritable bowel syndrome) Murmur Surgical History Surgical History No significant past surgical history Social History Social History Smoking status: Never smoker Alcohol intake: current Gender identity (if verbalized by the patient): Male Exam Narrative: APPEARANCE: No apparent distress. well-appearing Head: atraumatic. EYES: EOMI, NOSE: Atraumatic NECK: Trachea midline RESPIRATORY: No increased rate of breathing clear to auscultation CARDIOVASCULAR: RRR, ABDOMINAL: Abdomen is soft nontender no guarding or rebound MUSCULOSKELETAl: No obvious deformities NEURO: Alert. Moving 4/4 extremities SKIN:: Warm, dry. Normal color PSYCHIATRIC: Normal affect rectal exam revealed no external hemorrhoids or fissures. No gross blood on digital exam. Hemoccult negative. Course Vital Signs Vital signs: Vital Signs Temperature 97.9 F 08/27/22 22:52 Pulse Rate 70 08/27/22 22:52 Respiratory Rate 14 08/27/22 22:52 Blood Pressure 160/80 H 08/27/22 22:52 Pulse Oximetry 100 08/27/22 22:52 Oxygen Delivery Room Air 08/27/22 22:52 Temperature 98.2 F 08/28/22 00:18 Pulse Rate 61 08/28/22 00:23 Respiratory Rate 14 08/28/22 00:18 Blood Pressure 131/88 08/28/22 00:23 Pulse Oximetry 100 08/28/22 00:18 Oxygen Delivery Room Air 08/27/22 22:52 Medical Decision Making MDM Narrative Medical decision making narrative: -Presentation: 26-year-old male presenting with a black bowel movement. He also has an itchy red eye. -DDX includes but is not limited to: Normal bowel movement, GI bleed, for discoloration, allergic conjunctivitis, bacterial conjunctivitis -Co-morbidities complicating care: irritable bowel syndrome -Social determinants of health: patient works in [place] -External Chart Review: review of previous ER records for miscellaneous minor complaints. -Hx from independent Sources: at bedside -Independent interpretation of studies: CBC showed hemoglobin of 15.1. Metabolic panel unremarkable. -Discussion of Management/Consultants: None -Dx tests considered but not ordered: CT abdomen pelvis -benign abdominal exam and has low utility for bleeding. Discussed pros and cons the patient agrees that he will pass on the CT abdomen pelvis at this time. -Procedures: None -Interventions: none -Shared decision making / Disposition: patient was monitored for several hours and did not have another bowel movement. He is well appearing with stable vital signs. rectal exam did not show melena or liang blood. Since the patient is young and healthy he will be discharged with return precautions if it recurs or if he develop symptoms. Given primary care follow-up. Patient will be given Ocuflox eyedrops for his conjunctivitis. -RX Ocuflox Vital Signs Vital Signs: Vital Sign
== END 2022-08-28 02:32 | disposition home or self-care (01) ==
PROVIDERS: Emergency Provider Emergency Medicine
DX: R19.5 Other fecal abnormalities (principal); H10.9 Unspecified conjunctivitis; J45.909 Unspecified asthma, uncomplicated; K58.9 Irritable bowel syndrome, unspecified
CPT/HCPCS: 36415; 80053; 85025; 85610; 85730; 86850; 86900; 86901; 99283

== ENCOUNTER 2022-09-01 20:25 | Emergency (ER) | payer OTHER, SELFPAY ==
[2022-09-01 20:32] VITALS: BP 151/87; PULSE 67; RESP 18; TEMP 36.4; O2SAT 98
[2022-09-01 21:05] VITALS: BP 135/83; PULSE 67; RESP 16; TEMP 37.1; O2SAT 100
--- NOTE | 2022-09-01 21:14 | ED.GENADULT ---
HPI - General Adult General Chief complaint: Extremity Problem,Nontraumatic Stated complaint: R hand swelling Time Seen by Provider: 09/01/22 20:46 Source: patient Mode of arrival: ambulatory Limitations: no limitations History of Present Illness HPI narrative: This is a 26-year-old male who presents to the ED with chief complaint of right hand swelling, redness and pain starting this morning. Patient states that he has had this swelling intermittently for the past year. He states it sometimes is in the left hand and sometimes in the right. States it has never been this severe before. He has additional complaints of sore throat onset yesterday. Denies fevers, chills, nausea, vomiting, numbness, weakness, injury. Denies any known allergies. Denies any new skin exposures. Related Data Allergies Allergy/AdvReac Type Severity Reaction Status Date / Time No Known Allergies Allergy Verified 09/01/22 21:03 [facility] Past Medical History Medical History (Updated 09/02/22 @ 00:00 by Maria G Coy) Asthma IBS (irritable bowel syndrome) Murmur Surgical History Surgical History No significant past surgical history Social History Social History Smoking status: Never smoker Alcohol intake: current Gender identity (if verbalized by the patient): Male Exam Narrative: GENERAL: Well-appearing, well-nourished, and in no acute distress. HEAD: Normocephalic, atraumatic. EYES: PERRLA and EOMI. ENT: Nares clear, no rhinorrhea or epistaxis. Mucous membranes moist. Oropharynx without tonsillar hypertrophy exudate or other lesions. NECK: Supple. No adenopathy or masses. CHEST: No respiratory distress. Clear to auscultation. No wheezes rales or rhonchi HEART: Regular rate and rhythm. No murmur heard. Normal peripheral pulses. ABDOMEN: Soft, nontender, nondistended, normal active bowel sounds. MSK: Right hand: Moderate swelling throughout the entire right hand. Moderate erythema. No lesions or wounds noted. Full range of motion. Neurovascularly intact distally. Negative Kanavel signs Left hand: Benign. Normal range of motion. No edema. SKIN: Warm, dry, no rash. The skin on the right hand blanches. Appears to be urticarial at the wrist. NEURO: Alert and oriented x3. No focal deficits. PSYCH: Normal mood and affect. Course Vital Signs Vital signs: Vital Signs Temperature 97.6 F 09/01/22 20:32 Pulse Rate 67 09/01/22 20:32 Respiratory Rate 18 09/01/22 20:32 Blood Pressure 151/87 H 09/01/22 20:32 Pulse Oximetry 98 09/01/22 20:32 Oxygen Delivery Room Air 09/01/22 20:32 Temperature 98.7 F 09/01/22 21:05 Pulse Rate 67 09/01/22 21:05 Respiratory Rate 16 09/01/22 21:05 Blood Pressure 135/83 09/01/22 21:05 Pulse Oximetry 100 09/01/22 21:05 Oxygen Delivery Room Air 09/01/22 20:32 Medical Decision Making MDM Narrative Medical decision making narrative: This is a 26-year-old male who presents to the ED with chief complaint of right hand swelling beginning today but has been intermittent for the past year. Vitals are normal. Exam reveals swelling to the right hand diffusely. There seems to be an urticarial rash at the wrist. No lesions or cellulitis noted. Minimal tenderness throughout the hand. Kanavel signs negative. He also has evidence of possible streptococcal infection on his ENT exam. Strep test negative but prescribing Augmentin to cover. The upper extremity complaints appear to be more of an allergic process that has been going on and off for the past year. If he does have a cellulitis present the Augmentin should help cover this. I instructed him to follow-up with family doctor regarding possible allergy referral. He remained stable for discharge. Afebrile. Prescriptions for naproxen and Medrol Dosepak given. Instructed to take Benadryl at night. R
[2022-09-01] MEDS: predniSONE 20 MG TABLET 40 MG PO (21:20)
[2022-09-01 21:30] LABS: Basophils Percent Auto 0.4 % (0.2-1.2); Eosinophils Absolute Auto 0.1 K/mm3 (0-0.3); Hematocrit 41.5 % (42.0-52.0); Hemoglobin 14.5 g/dL (14.0-18.0); Immature Granulocyte Absolute 0.01 K/mm3 (0.00-0.031); Immature Granulocyte Percent A 0.1 % (0-0.5); Immature Platelet Fraction Pct 4.6 % (0.9-11.2); Lymphocytes Percent Auto 30.9 % (18.3-44.2); Mean Corpuscular HGB Conc 34.9 g/dl (32-36); Mean Corpuscular Hemoglobin 30.1 pg (26-34); Mean Corpuscular Volume 86.3 fl (80-100); Monocytes Absolute Auto 0.7 K/mm3 (0.1-0.6); Monocytes Percent Auto 9.8 % (2.6-8.5); Neutrophils Absolute Auto 4.1 K/mm3 (1.3-6.7); Neutrophils Percent Auto 57.8 % (45.5-73.1); Red Blood Count 4.81 M/mm3 (4.6-6.20); Red Cell Distribution Width 11.7 % (11.5-14.5); White Blood Count 7.1 K/mm3 (4.5-10.0)
[2022-09-01 21:40] LABS: Alanine Aminotransferase 23 U/L (6-50); Albumin Level 4.3 g/dL (3.5-5.1); Alkaline Phosphatase 55 U/L (38-126); Anion Gap 8 mmol/L (8-16); Aspartate Amino Transferase 34 U/L (17-59); Bilirubin,Total 0.8 mg/dL (0.2-1.3); Blood Urea Nitrogen 13 mg/dL (9-20); Calcium 8.8 mg/dL (8.4-10.2); Carbon Dioxide 25 mmol/L (22-30); Chloride 104 mmol/L (98-107); Estimated CRCL calculation 160 ml/min; Estimated Glomerular Filt Rate > 60; Glucose 134 mg/dL (65-110); Potassium 3.7 mmol/L (3.4-5.0); Sodium 137 mmol/L (137-145)
[2022-09-01 21:45] LABS: Strep Group A RT-PCR NOT DETECTED (Negative)
[2022-09-01] MEDS: AMOXICILLIN/CLAVULANATE K 875-125 MG TAB 1 TABLET PO (22:32)
== END 2022-09-01 22:44 | disposition home or self-care (01) ==
PROVIDERS: Emergency Provider Physician Assistant
DX: R22.31 Localized swelling, mass and lump, right upper limb (principal); J02.9 Acute pharyngitis, unspecified; J45.909 Unspecified asthma, uncomplicated; K58.9 Irritable bowel syndrome, unspecified
CPT/HCPCS: 36415; 80053; 85025; 85055; 87651; 99283; A9270; J7512